=== PATIENT | male | born 1950 | race Caucasian/White ===

== ENCOUNTER 2016-10-31 10:15 | Outpatient (RCR) | payer MEDICARE, BC ==
[~2016-10-31 10:15] MED LIST: AKWA TEARS 15 M15 ML OP; ARTIFICIAL TEAR15 M7 OP; AUGMENTIN 400100 ML PEG; BACTRIM PED152.22 ML PO; CELLCEPT200 MG/ML PO; COLACE 100100 MG/CAP PO; COLACE LIQUI10 MG/ML PEG; FOSAMAX5 MG PO; IMURAN 50MG TAB50 MG PO; INSLANT SQ; KLONOPIN 0.5MG0.5 MG PO; LOVENOX 4040 MG/0.4 SQ; MESTINON 6060 MG/TAB PO; MULTI VITAMINS1 TAB PO; MULTIPLE VITAMI1 CAP PO; NEOSPORIN1 OIN TP; NEXIUM ORA40 MG/Pack PEG; NORCO 325 MG-51 TAB PO; NOVLOG SQ; NYSTATIN OR100 MU/ML PO; OYSCO 500500 M1 PO; OYSTER SHELL CA PO; PREDNISONE10 MG PO; PREDNISONE20 MG PO; PRILOTC; PRIVIGEN 200 M200 ML IV; RT ALBUTER2.5 MG/0.5 IH; SENOKOT S 50 MG1 TAB PO; TYLENOL 325MG325 MG PO; ZOFRAN 4MG T4 MG/TAB PO
[2017-06-07] MEDS ORDERED: RECLAST5 MG/100 M IV (09:48)
[2017-06-07] MEDS ORDERED: PROSOURCE PROT946 ML PO (09:50)
[2017-06-07] MEDS ORDERED: ISOSOURCE 1.51000 M1 PO (09:56)
[2017-06-07] MEDS ORDERED: TYLENOL 500MG500 MG PO (09:57)
[2017-06-07] MEDS ORDERED: NEOSPORIN1 OIN OP (09:58)
== END 2016-11-14 | disposition still patient (30) ==
LOC: WSST
DX: G70.00 Myasthenia gravis without (acute) exacerbation (principal); R53.1 Weakness

== ENCOUNTER 2017-02-02 10:00 | Outpatient (RCR) | payer MEDICARE, BC ==
[2016-11-10] VITALS (14 sets, daily range): BP systolic 116–138; BP diastolic 59–70; PULSE 60–64; TEMP 97.4–98.2
[2016-11-10 10:24] LABS: BASO % 0.6 % (0.0-2.0); EOS # 0.1 (0.0-0.7); GRAN # 4.9 (1.4-6.5); HEMATOCRIT 42.6 % (42.0-52.0); HEMOGLOBIN 14.4 g/dl (13.5-18.0); LYMPH # 1.4 (1.2-3.4); LYMPH % 19.6 % (20.0-51.0); MEAN CELL VOLUME 95 fl (80.0-100.0); MEAN CORPUSCULAR HEMOGLOBIN 32 pg (27.0-31.0); MEAN CORPUSCULAR HGB CONC 34 g/dl (33.0-37.0); MEAN PLATELET VOLUME 10.3 fl (7.4-10.4); MONO # 0.7 (0.1-0.6); MONO % 9.4 % (1.7-9.3); PLATELET COUNT 167 K/mm3 (130-400); WHITE BLOOD COUNT 7.2 K/mm3 (4.8-10.8)
[2016-11-10 10:35] LABS: ADJUSTED CALCIUM 9.3 mg/dL (8.4-10.2); ALBUMIN 3.9 gm/dL (3.5-5.0); BILIRUBIN,TOTAL 0.8 mg/dL (0.0-1.0); CALCIUM 9.2 mg/dL (8.4-10.2); CREATININE, serum 0.88 mg/dL (0.66-1.25); TOTAL PROTEIN 7.9 gm/dL (6.4-8.2)
[2016-12-01] VITALS (15 sets, daily range): BP systolic 102–127; BP diastolic 50–79; PULSE 56–63; TEMP 97.7–98.1
[2016-12-01 10:18] LABS: BASO % 0.4 % (0.0-2.0); EOS # 0.1 (0.0-0.7); EOS % 0.7 % (0-4.0); GRAN # 5.5 (1.4-6.5); GRAN % 67.3 % (42.2-75.2); HEMATOCRIT 41.9 % (42.0-52.0); HEMOGLOBIN 14.3 g/dl (13.5-18.0); LYMPH # 1.7 (1.2-3.4); LYMPH % 21.2 % (20.0-51.0); MEAN CELL VOLUME 96 fl (80.0-100.0); MEAN CORPUSCULAR HEMOGLOBIN 33 pg (27.0-31.0); MEAN CORPUSCULAR HGB CONC 34 g/dl (33.0-37.0); MEAN PLATELET VOLUME 10.2 fl (7.4-10.4); MONO # 0.8 (0.1-0.6); MONO % 10.2 % (1.7-9.3); PLATELET COUNT 145 K/mm3 (130-400); RED BLOOD COUNT 4.38 M/mm3 (4.20-5.60); WHITE BLOOD COUNT 8.2 K/mm3 (4.8-10.8)
[2016-12-01 10:30] LABS: ADJUSTED CALCIUM 9.3 mg/dL (8.4-10.2); ALBUMIN 3.8 gm/dL (3.5-5.0); BILIRUBIN,TOTAL 0.8 mg/dL (0.0-1.0); CALCIUM 9.1 mg/dL (8.4-10.2); CREATININE, serum 0.92 mg/dL (0.66-1.25); POTASSIUM 3.8 mmol/L (3.4-5.0); TOTAL PROTEIN 7.9 gm/dL (6.4-8.2)
[2016-12-22] VITALS (14 sets, daily range): BP systolic 110–129; BP diastolic 60–78; PULSE 57–64; TEMP 97.9–98.7
[2016-12-22 08:57] LABS: BASO % 0.4 % (0.0-2.0); EOS # 0.1 (0.0-0.7); EOS % 0.6 % (0-4.0); GRAN # 6.4 (1.4-6.5); GRAN % 80.2 % (42.2-75.2); HEMATOCRIT 42.3 % (42.0-52.0); HEMOGLOBIN 14.4 g/dl (13.5-18.0); LYMPH # 0.9 (1.2-3.4); LYMPH % 10.9 % (20.0-51.0); MEAN CELL VOLUME 94 fl (80.0-100.0); MEAN CORPUSCULAR HEMOGLOBIN 32 pg (27.0-31.0); MEAN CORPUSCULAR HGB CONC 34 g/dl (33.0-37.0); MEAN PLATELET VOLUME 10.1 fl (7.4-10.4); MONO # 0.6 (0.1-0.6); MONO % 7.4 % (1.7-9.3); PLATELET COUNT 147 K/mm3 (130-400); RED BLOOD COUNT 4.49 M/mm3 (4.20-5.60); WHITE BLOOD COUNT 7.9 K/mm3 (4.8-10.8)
[2016-12-22 09:15] LABS: ADJUSTED CALCIUM 9.4 mg/dL (8.4-10.2); ALBUMIN 3.8 gm/dL (3.5-5.0); BILIRUBIN,TOTAL 0.8 mg/dL (0.0-1.0); CALCIUM 9.2 mg/dL (8.4-10.2); CREATININE, serum 0.92 mg/dL (0.66-1.25); TOTAL PROTEIN 7.7 gm/dL (6.4-8.2)
[2017-01-12] VITALS (10 sets, daily range): BP systolic 106–133; BP diastolic 56–69; PULSE 51–60; TEMP 97.5–98.4
[2017-01-12 10:43] LABS: BASO % 0.4 % (0.0-2.0); EOS # 0.1 (0.0-0.7); EOS % 0.7 % (0-4.0); GRAN # 5.2 (1.4-6.5); GRAN % 67.7 % (42.2-75.2); HEMATOCRIT 43.5 % (42.0-52.0); HEMOGLOBIN 14.9 g/dl (13.5-18.0); LYMPH # 1.6 (1.2-3.4); LYMPH % 20.6 % (20.0-51.0); MEAN CELL VOLUME 95 fl (80.0-100.0); MEAN CORPUSCULAR HEMOGLOBIN 32 pg (27.0-31.0); MEAN CORPUSCULAR HGB CONC 34 g/dl (33.0-37.0); MEAN PLATELET VOLUME 10.4 fl (7.4-10.4); MONO # 0.8 (0.1-0.6); MONO % 10.2 % (1.7-9.3); PLATELET COUNT 149 K/mm3 (130-400); REDCELL DISTRIBUTION WIDTH-CV 13.1 % (11.5-14.5); WHITE BLOOD COUNT 7.6 K/mm3 (4.8-10.8)
[2017-01-12 10:51] LABS: ADJUSTED CALCIUM 9.5 mg/dL (8.4-10.2); ALBUMIN 4.1 gm/dL (3.5-5.0); BILIRUBIN,TOTAL 0.8 mg/dL (0.0-1.0); CALCIUM 9.6 mg/dL (8.4-10.2); CREATININE, serum 0.97 mg/dL (0.66-1.25); POTASSIUM 3.6 mmol/L (3.4-5.0); TOTAL PROTEIN 8.2 gm/dL (6.4-8.2)
[~2017-02-02] VITALS: Ht 180.3 cm; Wt 101.8 kg
[2017-02-02] VITALS (14 sets, daily range): BP systolic 109–136; BP diastolic 60–75; PULSE 54–62; TEMP 97.2–98.6
[2017-02-02 10:31] LABS: BASO # 0.1 (0.0-0.2); BASO % 0.7 % (0.0-2.0); EOS # 0.1 (0.0-0.7); EOS % 0.7 % (0-4.0); GRAN # 4.7 (1.4-6.5); HEMATOCRIT 42.3 % (42.0-52.0); HEMOGLOBIN 14.4 g/dl (13.5-18.0); LYMPH # 1.5 (1.2-3.4); LYMPH % 21.4 % (20.0-51.0); MEAN CELL VOLUME 96 fl (80.0-100.0); MEAN CORPUSCULAR HEMOGLOBIN 33 pg (27.0-31.0); MEAN CORPUSCULAR HGB CONC 34 g/dl (33.0-37.0); MEAN PLATELET VOLUME 10.1 fl (7.4-10.4); MONO # 0.6 (0.1-0.6); MONO % 8.9 % (1.7-9.3); PLATELET COUNT 156 K/mm3 (130-400); RED BLOOD COUNT 4.43 M/mm3 (4.20-5.60); REDCELL DISTRIBUTION WIDTH-CV 13.1 % (11.5-14.5); WHITE BLOOD COUNT 6.9 K/mm3 (4.8-10.8)
[2017-02-02 10:49] LABS: ADJUSTED CALCIUM 9.4 mg/dL (8.4-10.2); ALBUMIN 3.8 gm/dL (3.5-5.0); BILIRUBIN,TOTAL 0.8 mg/dL (0.0-1.0); CALCIUM 9.2 mg/dL (8.4-10.2); CREATININE, serum 0.87 mg/dL (0.66-1.25); POTASSIUM 4.1 mmol/L (3.4-5.0); TOTAL PROTEIN 7.8 gm/dL (6.4-8.2)
[2017-06-07] MEDS ORDERED: RECLAST5 MG/100 M IV (09:48)
[2017-06-07] MEDS ORDERED: PROSOURCE PROT946 ML PO (09:50)
[2017-06-07] MEDS ORDERED: ISOSOURCE 1.51000 M1 PO (09:56)
[2017-06-07] MEDS ORDERED: TYLENOL 500MG500 MG PO (09:57)
[2017-06-07] MEDS ORDERED: NEOSPORIN1 OIN OP (09:58)
== END 2017-02-08 | disposition home or self-care (01) ==
LOC: EUO
PROVIDERS: Family Medicine
DX: G70.00 Myasthenia gravis without (acute) exacerbation (principal)
CPT/HCPCS: J1200; J1459

== ENCOUNTER 2017-02-08 10:15 | Outpatient (RCR) | payer MEDICARE, BC ==
[2017-06-07] MEDS ORDERED: RECLAST5 MG/100 M IV (09:48)
[2017-06-07] MEDS ORDERED: PROSOURCE PROT946 ML PO (09:50)
[2017-06-07] MEDS ORDERED: ISOSOURCE 1.51000 M1 PO (09:56)
[2017-06-07] MEDS ORDERED: TYLENOL 500MG500 MG PO (09:57)
[2017-06-07] MEDS ORDERED: NEOSPORIN1 OIN OP (09:58)
== END 2017-02-13 | disposition home or self-care (01) ==
LOC: WSST
DX: G70.00 Myasthenia gravis without (acute) exacerbation (principal)
CPT/HCPCS: G8997-GN; G8998-GN; G9171-GN; G9172-GN

== ENCOUNTER 2017-02-14 14:30 | Emergency (ER) | payer MEDICARE, BC ==
[~2017-02-14] VITALS: Ht 180.3 cm; Wt 101.8 kg
[2017-02-14 14:30] VITALS: BP 182/79; TEMP 98.5
[2017-02-14 15:08] VITALS: PULSE 75
[2017-06-07] MEDS ORDERED: RECLAST5 MG/100 M IV (09:48)
[2017-06-07] MEDS ORDERED: PROSOURCE PROT946 ML PO (09:50)
[2017-06-07] MEDS ORDERED: ISOSOURCE 1.51000 M1 PO (09:56)
[2017-06-07] MEDS ORDERED: TYLENOL 500MG500 MG PO (09:57)
[2017-06-07] MEDS ORDERED: NEOSPORIN1 OIN OP (09:58)
== END 2017-02-14 15:09 | disposition home or self-care (01) ==
LOC: COL.ER 14:30
DX: K94.23 Gastrostomy malfunction (principal); Z43.1 Encounter for attention to gastrostomy; G70.00 Myasthenia gravis without (acute) exacerbation

== ENCOUNTER 2017-05-01 10:15 | Outpatient (RCR) | payer MEDICARE, BC ==
[2017-06-07] MEDS ORDERED: RECLAST5 MG/100 M IV (09:48)
[2017-06-07] MEDS ORDERED: PROSOURCE PROT946 ML PO (09:50)
[2017-06-07] MEDS ORDERED: ISOSOURCE 1.51000 M1 PO (09:56)
[2017-06-07] MEDS ORDERED: TYLENOL 500MG500 MG PO (09:57)
[2017-06-07] MEDS ORDERED: NEOSPORIN1 OIN OP (09:58)
== END 2017-05-23 | disposition home or self-care (01) ==
LOC: WSST
DX: G70.00 Myasthenia gravis without (acute) exacerbation (principal)

== ENCOUNTER 2017-05-17 10:00 | Outpatient (RCR) | payer MEDICARE, BC ==
[2017-02-23] VITALS (14 sets, daily range): BP systolic 103–138; BP diastolic 60–76; PULSE 56–62; TEMP 96.9–98
[2017-02-23 11:14] LABS: ADJUSTED CALCIUM 9.1 mg/dL (8.4-10.2); BILIRUBIN,TOTAL 0.9 mg/dL (0.0-1.0); CALCIUM 9.1 mg/dL (8.4-10.2); CREATININE, serum 0.95 mg/dL (0.66-1.25); POTASSIUM 3.7 mmol/L (3.4-5.0); TOTAL PROTEIN 7.6 gm/dL (6.4-8.2)
[2017-02-23 11:27] LABS: BASO % 0.3 % (0.0-2.0); EOS # 0.1 (0.0-0.7); EOS % 0.9 % (0-4.0); GRAN # 4.3 (1.4-6.5); GRAN % 64.1 % (42.2-75.2); HEMATOCRIT 42.2 % (42.0-52.0); HEMOGLOBIN 14.2 g/dl (13.5-18.0); LYMPH # 1.6 (1.2-3.4); MEAN CELL VOLUME 95 fl (80.0-100.0); MEAN CORPUSCULAR HEMOGLOBIN 32 pg (27.0-31.0); MEAN CORPUSCULAR HGB CONC 34 g/dl (33.0-37.0); MEAN PLATELET VOLUME 10.7 fl (7.4-10.4); MONO # 0.7 (0.1-0.6); MONO % 10.4 % (1.7-9.3); PLATELET COUNT 151 K/mm3 (130-400); RED BLOOD COUNT 4.44 M/mm3 (4.20-5.60); REDCELL DISTRIBUTION WIDTH-CV 13.3 % (11.5-14.5); WHITE BLOOD COUNT 6.7 K/mm3 (4.8-10.8)
[2017-03-16] VITALS (14 sets, daily range): BP systolic 106–138; BP diastolic 54–72; PULSE 51–60; TEMP 97.3–99
[2017-03-16 10:58] LABS: BASO % 0.4 % (0.0-2.0); EOS % 0.4 % (0-4.0); GRAN # 6.4 (1.4-6.5); GRAN % 85.4 % (42.2-75.2); HEMATOCRIT 44.1 % (42.0-52.0); HEMOGLOBIN 15.3 g/dl (13.5-18.0); LYMPH # 0.7 (1.2-3.4); LYMPH % 8.6 % (20.0-51.0); MEAN CELL VOLUME 95 fl (80.0-100.0); MEAN CORPUSCULAR HEMOGLOBIN 33 pg (27.0-31.0); MEAN CORPUSCULAR HGB CONC 35 g/dl (33.0-37.0); MEAN PLATELET VOLUME 10.1 fl (7.4-10.4); MONO # 0.4 (0.1-0.6); MONO % 4.9 % (1.7-9.3); PLATELET COUNT 157 K/mm3 (130-400); RED BLOOD COUNT 4.63 M/mm3 (4.20-5.60); REDCELL DISTRIBUTION WIDTH-CV 13.2 % (11.5-14.5); WHITE BLOOD COUNT 7.5 K/mm3 (4.8-10.8)
[2017-03-16 11:12] LABS: ADJUSTED CALCIUM 9.4 mg/dL (8.4-10.2); ALBUMIN 4.2 gm/dL (3.5-5.0); CALCIUM 9.6 mg/dL (8.4-10.2); CREATININE, serum 0.93 mg/dL (0.66-1.25); POTASSIUM 4.5 mmol/L (3.4-5.0); TOTAL PROTEIN 8.1 gm/dL (6.4-8.2)
[2017-04-05] VITALS (15 sets, daily range): BP systolic 102–127; BP diastolic 50–73; PULSE 51–60; TEMP 96.9–98.1
[2017-04-05 10:58] LABS: BASO % 0.4 % (0.0-2.0); EOS % 0.6 % (0-4.0); GRAN % 73.9 % (42.2-75.2); HEMATOCRIT 41.7 % (42.0-52.0); HEMOGLOBIN 14.3 g/dl (13.5-18.0); LYMPH # 1.2 (1.2-3.4); MEAN CELL VOLUME 96 fl (80.0-100.0); MEAN CORPUSCULAR HEMOGLOBIN 33 pg (27.0-31.0); MEAN CORPUSCULAR HGB CONC 34 g/dl (33.0-37.0); MEAN PLATELET VOLUME 10.3 fl (7.4-10.4); MONO # 0.5 (0.1-0.6); MONO % 7.8 % (1.7-9.3); PLATELET COUNT 152 K/mm3 (130-400); RED BLOOD COUNT 4.36 M/mm3 (4.20-5.60); REDCELL DISTRIBUTION WIDTH-CV 13.2 % (11.5-14.5); WHITE BLOOD COUNT 6.8 K/mm3 (4.8-10.8)
[2017-04-05 11:16] LABS: ALBUMIN 3.9 gm/dL (3.5-5.0); BILIRUBIN,TOTAL 0.8 mg/dL (0.0-1.0); CALCIUM 8.9 mg/dL (8.4-10.2); CREATININE, serum 0.82 mg/dL (0.66-1.25); TOTAL PROTEIN 7.7 gm/dL (6.4-8.2)
[2017-04-19 13:10] VITALS: BP 118/48; PULSE 60; TEMP 98.4
[2017-04-27] VITALS (13 sets, daily range): BP systolic 111–127; BP diastolic 49–71; PULSE 52–70; TEMP 97–98.2
[2017-04-27 10:54] LABS: BASO % 0.3 % (0.0-2.0); EOS % 0.4 % (0-4.0); GRAN # 5.8 (1.4-6.5); GRAN % 85.5 % (42.2-75.2); HEMOGLOBIN 14.5 g/dl (13.5-18.0); LYMPH # 0.6 (1.2-3.4); LYMPH % 8.4 % (20.0-51.0); MEAN CELL VOLUME 96 fl (80.0-100.0); MEAN CORPUSCULAR HEMOGLOBIN 33 pg (27.0-31.0); MEAN CORPUSCULAR HGB CONC 35 g/dl (33.0-37.0); MEAN PLATELET VOLUME 10.5 fl (7.4-10.4); MONO # 0.3 (0.1-0.6); PLATELET COUNT 137 K/mm3 (130-400); RED BLOOD COUNT 4.39 M/mm3 (4.20-5.60); REDCELL DISTRIBUTION WIDTH-CV 13.4 % (11.5-14.5); WHITE BLOOD COUNT 6.8 K/mm3 (4.8-10.8)
[2017-04-27 11:04] LABS: ADJUSTED CALCIUM 8.5 mg/dL (8.4-10.2); ALBUMIN 4.1 gm/dL (3.5-5.0); CALCIUM 8.6 mg/dL (8.4-10.2); CREATININE, serum 0.78 mg/dL (0.66-1.25); POTASSIUM 5.1 mmol/L (3.4-5.0); TOTAL PROTEIN 7.8 gm/dL (6.4-8.2)
[2017-05-17] VITALS (15 sets, daily range): BP systolic 114–129; BP diastolic 51–75; PULSE 52–87; TEMP 97.3–98.4
[~2017-05-17] VITALS: Ht 180.3 cm; Wt 101.8 kg
[2017-05-17 12:00] LABS: HEMATOCRIT 45.1 % (42.0-52.0); HEMOGLOBIN 15.5 g/dl (13.5-18.0); MEAN CELL VOLUME 96 fl (80.0-100.0); MEAN CORPUSCULAR HEMOGLOBIN 33 pg (27.0-31.0); MEAN CORPUSCULAR HGB CONC 34 g/dl (33.0-37.0); MEAN PLATELET VOLUME 10.5 fl (7.4-10.4); PLATELET COUNT 129 K/mm3 (130-400); REDCELL DISTRIBUTION WIDTH-CV 13.4 % (11.5-14.5); WHITE BLOOD COUNT 6.2 K/mm3 (4.8-10.8)
[2017-05-17 12:06] LABS: CALCIUM 9.1 mg/dL (8.4-10.2); CREATININE, serum 0.79 mg/dL (0.66-1.25); POTASSIUM 4.5 mmol/L (3.4-5.0)
[2017-06-07] MEDS ORDERED: RECLAST5 MG/100 M IV (09:48)
[2017-06-07] MEDS ORDERED: PROSOURCE PROT946 ML PO (09:50)
[2017-06-07] MEDS ORDERED: ISOSOURCE 1.51000 M1 PO (09:56)
[2017-06-07] MEDS ORDERED: TYLENOL 500MG500 MG PO (09:57)
[2017-06-07] MEDS ORDERED: NEOSPORIN1 OIN OP (09:58)
== END 2017-05-24 | disposition still patient (30) ==
LOC: EUO
PROVIDERS: Family Medicine
DX: G70.00 Myasthenia gravis without (acute) exacerbation (principal); M81.0 Age-related osteoporosis without current pathological fracture; Z79.899 Other long term (current) drug therapy
CPT/HCPCS: J1200; J1459; J3489

== ENCOUNTER 2017-06-26 09:30 | Outpatient (RCR) | payer MEDICARE, BC ==
[~2017-06-26 09:30] MED LIST changes: +ISOSOURCE 1.51000 M1 PO; +NEOSPORIN1 OIN OP; +PROSOURCE PROT946 ML PO; +RECLAST5 MG/100 M IV; +TYLENOL 500MG500 MG PO
== END 2017-08-27 | disposition home or self-care (01) ==
LOC: WSST
DX: G70.00 Myasthenia gravis without (acute) exacerbation (principal); R13.12 Dysphagia, oropharyngeal phase; R49.9 Unspecified voice and resonance disorder; F80.9 Developmental disorder of speech and language, unspecified; Z97.8 Presence of other specified devices
CPT/HCPCS: G9172-GN; G9173-GN

== ENCOUNTER 2017-08-30 10:00 | Outpatient (RCR) | payer MEDICARE, BC ==
[2017-06-07] VITALS (11 sets, daily range): BP systolic 103–130; BP diastolic 49–95; PULSE 44–60; TEMP 97–98.5
[2017-06-07 09:43] LABS: HEMATOCRIT 41.3 % (42.0-52.0); HEMOGLOBIN 14.5 g/dl (13.5-18.0); MEAN CELL VOLUME 96 fl (80.0-100.0); MEAN CORPUSCULAR HEMOGLOBIN 34 pg (27.0-31.0); MEAN CORPUSCULAR HGB CONC 35 g/dl (33.0-37.0); MEAN PLATELET VOLUME 10.3 fl (7.4-10.4); PLATELET COUNT 115 K/mm3 (130-400); RED BLOOD COUNT 4.32 M/mm3 (4.20-5.60); WHITE BLOOD COUNT 5.4 K/mm3 (4.8-10.8)
[2017-06-07 09:56] LABS: CREATININE, serum 0.81 mg/dL (0.66-1.25); POTASSIUM 3.8 mmol/L (3.4-5.0)
[2017-06-28] VITALS (14 sets, daily range): BP systolic 109–129; BP diastolic 17–70; PULSE 54–62; TEMP 56–98.8
[2017-06-28 10:25] LABS: HEMATOCRIT 41.7 % (42.0-52.0); HEMOGLOBIN 14.3 g/dl (13.5-18.0); MEAN CELL VOLUME 97 fl (80.0-100.0); MEAN CORPUSCULAR HEMOGLOBIN 33 pg (27.0-31.0); MEAN CORPUSCULAR HGB CONC 34 g/dl (33.0-37.0); MEAN PLATELET VOLUME 10.3 fl (7.4-10.4); PLATELET COUNT 126 K/mm3 (130-400); WHITE BLOOD COUNT 4.7 K/mm3 (4.8-10.8)
[2017-06-28 10:38] LABS: CALCIUM 8.6 mg/dL (8.4-10.2); CREATININE, serum 0.8 mg/dL (0.66-1.25); POTASSIUM 4.2 mmol/L (3.4-5.0)
[2017-07-19] VITALS (11 sets, daily range): BP systolic 114–137; BP diastolic 63–81; PULSE 45–56; TEMP 97.6–98.5
[2017-07-19 11:24] LABS: BASO % 0.4 % (0.0-2.0); EOS # 0.1 (0.0-0.7); EOS % 1.8 % (0-4.0); GRAN # 2.3 (1.4-6.5); GRAN % 52.5 % (42.2-75.2); HEMATOCRIT 40.7 % (42.0-52.0); HEMOGLOBIN 13.8 g/dl (13.5-18.0); LYMPH # 1.5 (1.2-3.4); LYMPH % 34.2 % (20.0-51.0); MEAN CELL VOLUME 97 fl (80.0-100.0); MEAN CORPUSCULAR HEMOGLOBIN 33 pg (27.0-31.0); MEAN CORPUSCULAR HGB CONC 34 g/dl (33.0-37.0); MEAN PLATELET VOLUME 10.1 fl (7.4-10.4); MONO # 0.5 (0.1-0.6); MONO % 10.7 % (1.7-9.3); PLATELET COUNT 116 K/mm3 (130-400); RED BLOOD COUNT 4.19 M/mm3 (4.20-5.60); WHITE BLOOD COUNT 4.5 K/mm3 (4.8-10.8)
[2017-07-19 11:33] LABS: ADJUSTED CALCIUM 9.2 mg/dL (8.4-10.2); ALBUMIN 3.9 gm/dL (3.5-5.0); BILIRUBIN,TOTAL 0.9 mg/dL (0.0-1.0); CALCIUM 9.1 mg/dL (8.4-10.2); CREATININE, serum 0.8 mg/dL (0.66-1.25); POTASSIUM 4.1 mmol/L (3.4-5.0); TOTAL PROTEIN 7.8 gm/dL (6.4-8.2)
[2017-08-09] VITALS (14 sets, daily range): BP systolic 110–141; BP diastolic 59–75; PULSE 46–81; TEMP 98–98.6
[2017-08-09 10:29] LABS: HEMATOCRIT 40.1 % (42.0-52.0); MEAN CELL VOLUME 96 fl (80.0-100.0); MEAN CORPUSCULAR HEMOGLOBIN 34 pg (27.0-31.0); MEAN CORPUSCULAR HGB CONC 35 g/dl (33.0-37.0); MEAN PLATELET VOLUME 10.1 fl (7.4-10.4); PLATELET COUNT 115 K/mm3 (130-400); RED BLOOD COUNT 4.17 M/mm3 (4.20-5.60); WHITE BLOOD COUNT 4.7 K/mm3 (4.8-10.8)
[2017-08-09 10:40] LABS: CREATININE, serum 0.82 mg/dL (0.66-1.25); POTASSIUM 3.7 mmol/L (3.4-5.0)
[~2017-08-30] VITALS: Ht 180.3 cm; Wt 98.5 kg
[2017-08-30] VITALS (14 sets, daily range): BP systolic 115–145; BP diastolic 53–77; PULSE 50–92; TEMP 97.8–98.7
[2017-08-30 10:34] LABS: BASO % 0.4 % (0.0-2.0); EOS % 0.9 % (0-4.0); GRAN # 2.6 (1.4-6.5); GRAN % 58.8 % (42.2-75.2); HEMATOCRIT 39.9 % (42.0-52.0); HEMOGLOBIN 13.7 g/dl (13.5-18.0); LYMPH # 1.3 (1.2-3.4); LYMPH % 29.9 % (20.0-51.0); MEAN CELL VOLUME 98 fl (80.0-100.0); MEAN CORPUSCULAR HEMOGLOBIN 34 pg (27.0-31.0); MEAN CORPUSCULAR HGB CONC 34 g/dl (33.0-37.0); MEAN PLATELET VOLUME 10.1 fl (7.4-10.4); MONO # 0.4 (0.1-0.6); MONO % 9.8 % (1.7-9.3); PLATELET COUNT 126 K/mm3 (130-400); RED BLOOD COUNT 4.09 M/mm3 (4.20-5.60); WHITE BLOOD COUNT 4.5 K/mm3 (4.8-10.8)
[2017-08-30 10:48] LABS: ALBUMIN 4.1 gm/dL (3.5-5.0); BILIRUBIN,TOTAL 0.9 mg/dL (0.0-1.0); CALCIUM 9.1 mg/dL (8.4-10.2); CREATININE, serum 0.83 mg/dL (0.66-1.25); POTASSIUM 3.5 mmol/L (3.4-5.0); TOTAL PROTEIN 7.9 gm/dL (6.4-8.2)
== END 2017-09-05 ==
LOC: EUO
PROVIDERS: Family Medicine
DX: G70.00 Myasthenia gravis without (acute) exacerbation (principal)
CPT/HCPCS: J1200; J1459

== ENCOUNTER 2017-11-01 10:00 | Outpatient (RCR) | payer MEDICARE, BC ==
[2017-09-20] VITALS (15 sets, daily range): BP systolic 103–136; BP diastolic 40–80; PULSE 54–78; TEMP 98–99
[2017-09-20 10:33] LABS: HEMATOCRIT 41.5 % (42.0-52.0); HEMOGLOBIN 14.2 g/dl (13.5-18.0); MEAN CELL VOLUME 97 fl (80.0-100.0); MEAN CORPUSCULAR HEMOGLOBIN 33 pg (27.0-31.0); MEAN CORPUSCULAR HGB CONC 34 g/dl (33.0-37.0); MEAN PLATELET VOLUME 9.7 fl (7.4-10.4); PLATELET COUNT 153 K/mm3 (130-400); RED BLOOD COUNT 4.28 M/mm3 (4.20-5.60); REDCELL DISTRIBUTION WIDTH-CV 12.8 % (11.5-14.5)
[2017-09-20 10:46] LABS: CREATININE, serum 0.83 mg/dL (0.66-1.25); POTASSIUM 3.9 mmol/L (3.4-5.0)
[2017-10-11] VITALS (15 sets, daily range): BP systolic 110–134; BP diastolic 65–78; PULSE 47–58; TEMP 98–98.3
[2017-10-11 10:55] LABS: HEMATOCRIT 40.8 % (42.0-52.0); HEMOGLOBIN 14.3 g/dl (13.5-18.0); MEAN CELL VOLUME 98 fl (80.0-100.0); MEAN CORPUSCULAR HEMOGLOBIN 34 pg (27.0-31.0); MEAN CORPUSCULAR HGB CONC 35 g/dl (33.0-37.0); MEAN PLATELET VOLUME 9.9 fl (7.4-10.4); PLATELET COUNT 130 K/mm3 (130-400); RED BLOOD COUNT 4.18 M/mm3 (4.20-5.60); REDCELL DISTRIBUTION WIDTH-CV 13.2 % (11.5-14.5)
[2017-10-11 11:03] LABS: CALCIUM 9.3 mg/dL (8.4-10.2); CREATININE, serum 0.86 mg/dL (0.66-1.25); POTASSIUM 3.6 mmol/L (3.4-5.0)
[2017-11-01] VITALS (14 sets, daily range): BP systolic 109–135; BP diastolic 42–69; PULSE 49–63; TEMP 97.6–98.7
[~2017-11-01] VITALS: Ht 180.3 cm; Wt 97.0 kg
[~2017-11-01 10:00] MED LIST changes: -PRILOTC; +PRILOTC PO
[2017-11-01 10:28] LABS: HEMATOCRIT 39.1 % (42.0-52.0); HEMOGLOBIN 13.6 g/dl (13.5-18.0); MEAN CELL VOLUME 98 fl (80.0-100.0); MEAN CORPUSCULAR HEMOGLOBIN 34 pg (27.0-31.0); MEAN CORPUSCULAR HGB CONC 35 g/dl (33.0-37.0); MEAN PLATELET VOLUME 9.5 fl (7.4-10.4); PLATELET COUNT 132 K/mm3 (130-400); REDCELL DISTRIBUTION WIDTH-CV 13.2 % (11.5-14.5)
[2017-11-01 10:41] LABS: CALCIUM 9.2 mg/dL (8.4-10.2); CREATININE, serum 0.86 mg/dL (0.66-1.25); POTASSIUM 3.7 mmol/L (3.4-5.0)
[2017-11-01] MEDS ORDERED: CALCIUM-500 5001 CTB PO (10:52)
== END 2017-11-02 08:30 | disposition home or self-care (01) ==
LOC: EUO 10:00
PROVIDERS: Family Medicine
DX: G70.00 Myasthenia gravis without (acute) exacerbation (principal)
CPT/HCPCS: J1200; J1569

== ENCOUNTER 2018-02-14 10:00 | Outpatient (RCR) | payer MEDICARE, BC ==
[2017-11-22] VITALS (14 sets, daily range): BP systolic 115–134; BP diastolic 63–84; PULSE 49–56; TEMP 98–98.4
[2017-11-22 10:44] LABS: HEMATOCRIT 38.9 % (42.0-52.0); HEMOGLOBIN 13.3 g/dl (13.5-18.0); MEAN CELL VOLUME 99 fl (80.0-100.0); MEAN CORPUSCULAR HEMOGLOBIN 34 pg (27.0-31.0); MEAN CORPUSCULAR HGB CONC 34 g/dl (33.0-37.0); MEAN PLATELET VOLUME 9.9 fl (7.4-10.4); PLATELET COUNT 119 K/mm3 (130-400); RED BLOOD COUNT 3.92 M/mm3 (4.20-5.60); REDCELL DISTRIBUTION WIDTH-CV 13.1 % (11.5-14.5)
[2017-11-22 10:52] LABS: CALCIUM 9.1 mg/dL (8.4-10.2); CREATININE, serum 0.83 mg/dL (0.66-1.25); POTASSIUM 3.6 mmol/L (3.4-5.0)
[2017-12-13] VITALS (14 sets, daily range): BP systolic 114–141; BP diastolic 58–68; PULSE 48–62; TEMP 98.1–98.3
[2017-12-13 10:45] LABS: HEMATOCRIT 41.5 % (42.0-52.0); HEMOGLOBIN 14.4 g/dl (13.5-18.0); MEAN CELL VOLUME 97 fl (80.0-100.0); MEAN CORPUSCULAR HEMOGLOBIN 34 pg (27.0-31.0); MEAN CORPUSCULAR HGB CONC 35 g/dl (33.0-37.0); MEAN PLATELET VOLUME 10.1 fl (7.4-10.4); PLATELET COUNT 120 K/mm3 (130-400); RED BLOOD COUNT 4.27 M/mm3 (4.20-5.60); REDCELL DISTRIBUTION WIDTH-CV 12.7 % (11.5-14.5)
[2017-12-13 10:46] LABS: CALCIUM 9.2 mg/dL (8.4-10.2); CREATININE, serum 0.84 mg/dL (0.66-1.25); POTASSIUM 3.8 mmol/L (3.4-5.0)
[2018-01-03] VITALS (12 sets, daily range): BP systolic 122–144; BP diastolic 64–82; PULSE 51–58; TEMP 97.9–98.4
[2018-01-03 10:36] LABS: HEMATOCRIT 39.8 % (42.0-52.0); HEMOGLOBIN 13.8 g/dl (13.5-18.0); MEAN CELL VOLUME 98 fl (80.0-100.0); MEAN CORPUSCULAR HEMOGLOBIN 34 pg (27.0-31.0); MEAN CORPUSCULAR HGB CONC 35 g/dl (33.0-37.0); MEAN PLATELET VOLUME 9.7 fl (7.4-10.4); PLATELET COUNT 126 K/mm3 (130-400); RED BLOOD COUNT 4.08 M/mm3 (4.20-5.60)
[2018-01-03 10:44] LABS: CALCIUM 8.7 mg/dL (8.4-10.2); CREATININE, serum 0.81 mg/dL (0.66-1.25); POTASSIUM 4.2 mmol/L (3.4-5.0)
[2018-01-24] VITALS (15 sets, daily range): BP systolic 114–141; BP diastolic 55–71; PULSE 49–60; TEMP 97.8–98.9
[2018-01-24 10:06] LABS: HEMATOCRIT 40.6 % (42.0-52.0); MEAN CELL VOLUME 98 fl (80.0-100.0); MEAN CORPUSCULAR HEMOGLOBIN 34 pg (27.0-31.0); MEAN CORPUSCULAR HGB CONC 35 g/dl (33.0-37.0); MEAN PLATELET VOLUME 9.7 fl (7.4-10.4); PLATELET COUNT 127 K/mm3 (130-400); RED BLOOD COUNT 4.16 M/mm3 (4.20-5.60); REDCELL DISTRIBUTION WIDTH-CV 13.2 % (11.5-14.5)
[2018-01-24 10:17] LABS: CALCIUM 8.8 mg/dL (8.4-10.2); CREATININE, serum 0.88 mg/dL (0.66-1.25); POTASSIUM 3.9 mmol/L (3.4-5.0)
[~2018-02-14] VITALS: Ht 180.3 cm; Wt 97.0 kg
[2018-02-14] VITALS (14 sets, daily range): BP systolic 113–140; BP diastolic 61–75; PULSE 49–57; TEMP 97.9–98.5
[~2018-02-14 10:00] MED LIST changes: +CALCIUM-500 5001 CTB PO
[2018-02-14 10:32] LABS: HEMATOCRIT 38.7 % (42.0-52.0); HEMOGLOBIN 13.4 g/dl (13.5-18.0); MEAN CELL VOLUME 97 fl (80.0-100.0); MEAN CORPUSCULAR HEMOGLOBIN 33 pg (27.0-31.0); MEAN CORPUSCULAR HGB CONC 35 g/dl (33.0-37.0); MEAN PLATELET VOLUME 9.4 fl (7.4-10.4); PLATELET COUNT 125 K/mm3 (130-400); RED BLOOD COUNT 4.01 M/mm3 (4.20-5.60); REDCELL DISTRIBUTION WIDTH-CV 13.2 % (11.5-14.5)
[2018-02-14 10:39] LABS: ALBUMIN 3.8 gm/dL (3.5-5.0); BILIRUBIN,TOTAL 0.7 mg/dL (0.0-1.0); CALCIUM 8.7 mg/dL (8.4-10.2); CREATININE, serum 0.9 mg/dL (0.66-1.25); POTASSIUM 3.9 mmol/L (3.4-5.0); TOTAL PROTEIN 8.1 gm/dL (6.4-8.2)
== END 2018-02-14 16:10 | disposition home or self-care (01) ==
LOC: EUO 10:00
PROVIDERS: Family Medicine
DX: G70.00 Myasthenia gravis without (acute) exacerbation (principal); Z79.899 Other long term (current) drug therapy
CPT/HCPCS: J1200; J1459; J1569

== ENCOUNTER 2018-05-30 10:00 | Outpatient (RCR) | payer MEDICARE, BC ==
[2018-03-07] VITALS (12 sets, daily range): BP systolic 119–131; BP diastolic 63–76; PULSE 51–62; TEMP 97.3–98.5
[2018-03-07 09:57] LABS: HEMATOCRIT 40.7 % (42.0-52.0); HEMOGLOBIN 14.1 g/dl (13.5-18.0); MEAN CELL VOLUME 97 fl (80.0-100.0); MEAN CORPUSCULAR HEMOGLOBIN 34 pg (27.0-31.0); MEAN CORPUSCULAR HGB CONC 35 g/dl (33.0-37.0); MEAN PLATELET VOLUME 9.6 fl (7.4-10.4); PLATELET COUNT 133 K/mm3 (130-400); RED BLOOD COUNT 4.19 M/mm3 (4.20-5.60); REDCELL DISTRIBUTION WIDTH-CV 13.2 % (11.5-14.5)
[2018-03-07 10:04] LABS: CALCIUM 8.6 mg/dL (8.4-10.2); CREATININE, serum 0.84 mg/dL (0.66-1.25); POTASSIUM 3.8 mmol/L (3.4-5.0)
[2018-03-28] VITALS (13 sets, daily range): BP systolic 101–131; BP diastolic 49–64; PULSE 45–54; TEMP 98.1–98.4
[2018-03-28 10:28] LABS: HEMATOCRIT 40.6 % (42.0-52.0); MEAN CELL VOLUME 96 fl (80.0-100.0); MEAN CORPUSCULAR HEMOGLOBIN 33 pg (27.0-31.0); MEAN CORPUSCULAR HGB CONC 35 g/dl (33.0-37.0); MEAN PLATELET VOLUME 9.8 fl (7.4-10.4); PLATELET COUNT 145 K/mm3 (130-400); RED BLOOD COUNT 4.22 M/mm3 (4.20-5.60)
[2018-03-28 10:42] LABS: ALANINE AMINOTRANSFERASE 29 U/L (21-72); ALBUMIN 3.9 gm/dL (3.5-5.0); ALKALINE PHOSPHATASE 54 U/L (50-136); ANION GAP 12 mmol/L (7-16); AST,SGOT 37 U/L (15-37); BILIRUBIN,TOTAL 0.9 mg/dL (0.0-1.0); BLOOD UREA NITROGEN 18 mg/dL (9-20); CALCIUM 9.2 mg/dL (8.4-10.2); CARBON DIOXIDE 28 mmol/L (22-30); CHLORIDE 106 mmol/L (98-107); CREATININE, serum 0.81 mg/dL (0.66-1.25); GLUCOSE 96 mg/dL (74-106); SODIUM 146 mmol/L (137-145); TOTAL PROTEIN 8.5 gm/dL (6.4-8.2)
[2018-04-18] VITALS (14 sets, daily range): BP systolic 113–141; BP diastolic 59–78; PULSE 52–60; TEMP 97.6–98.3
[2018-04-18 10:29] LABS: HEMATOCRIT 40.2 % (42.0-52.0); HEMOGLOBIN 13.8 g/dl (13.5-18.0); MEAN CELL VOLUME 96 fl (80.0-100.0); MEAN CORPUSCULAR HEMOGLOBIN 33 pg (27.0-31.0); MEAN CORPUSCULAR HGB CONC 34 g/dl (33.0-37.0); MEAN PLATELET VOLUME 9.8 fl (7.4-10.4); PLATELET COUNT 145 K/mm3 (130-400); RED BLOOD COUNT 4.19 M/mm3 (4.20-5.60); REDCELL DISTRIBUTION WIDTH-CV 13.2 % (11.5-14.5)
[2018-04-18 10:42] LABS: ALBUMIN 3.8 gm/dL (3.5-5.0); BILIRUBIN,TOTAL 0.9 mg/dL (0.0-1.0); CREATININE, serum 0.85 mg/dL (0.66-1.25); POTASSIUM 3.8 mmol/L (3.4-5.0); TOTAL PROTEIN 8.2 gm/dL (6.4-8.2)
[2018-04-25 13:03] VITALS: BP 143/62; PULSE 63; TEMP 98.1
[2018-05-09] VITALS (15 sets, daily range): BP systolic 108–141; BP diastolic 52–67; PULSE 47–57; TEMP 9.2
[2018-05-09 10:32] LABS: HEMATOCRIT 38.7 % (42.0-52.0); HEMOGLOBIN 13.2 g/dl (13.5-18.0); MEAN CELL VOLUME 98 fl (80.0-100.0); MEAN CORPUSCULAR HEMOGLOBIN 34 pg (27.0-31.0); MEAN CORPUSCULAR HGB CONC 34 g/dl (33.0-37.0); MEAN PLATELET VOLUME 9.5 fl (7.4-10.4); PLATELET COUNT 139 K/mm3 (130-400); RED BLOOD COUNT 3.94 M/mm3 (4.20-5.60); REDCELL DISTRIBUTION WIDTH-CV 13.6 % (11.5-14.5)
[2018-05-09 10:43] LABS: ALBUMIN 3.7 gm/dL (3.5-5.0); BILIRUBIN,TOTAL 0.9 mg/dL (0.0-1.0); CALCIUM 8.8 mg/dL (8.4-10.2); CREATININE, serum 0.84 mg/dL (0.66-1.25); TOTAL PROTEIN 8.2 gm/dL (6.4-8.2)
[~2018-05-30] VITALS: Ht 180.3 cm; Wt 96.8 kg
[2018-05-30] VITALS (15 sets, daily range): BP systolic 103–136; BP diastolic 54–70; PULSE 51–64; TEMP 97.7–98.5
[2018-05-30 10:17] LABS: HEMATOCRIT 41.4 % (42.0-52.0); HEMOGLOBIN 14.5 g/dl (13.5-18.0); MEAN CELL VOLUME 98 fl (80.0-100.0); MEAN CORPUSCULAR HEMOGLOBIN 34 pg (27.0-31.0); MEAN CORPUSCULAR HGB CONC 35 g/dl (33.0-37.0); MEAN PLATELET VOLUME 9.7 fl (7.4-10.4); PLATELET COUNT 135 K/mm3 (130-400); RED BLOOD COUNT 4.21 M/mm3 (4.20-5.60); REDCELL DISTRIBUTION WIDTH-CV 13.4 % (11.5-14.5)
[2018-05-30 10:30] LABS: ALBUMIN 4.1 gm/dL (3.5-5.0); BILIRUBIN,TOTAL 0.8 mg/dL (0.0-1.0); CALCIUM 8.8 mg/dL (8.4-10.2); CREATININE, serum 0.84 mg/dL (0.66-1.25); POTASSIUM 3.9 mmol/L (3.4-5.0)
[2018-08-01] MEDS ORDERED: CEPHALEXIN500 M1 PO (08:33)
== END 2018-06-05 | disposition still patient (30) ==
LOC: EUO
PROVIDERS: Family Medicine; Internal Medicine Pulmonary Disease
DX: M81.0 Age-related osteoporosis without current pathological fracture (principal); G70.00 Myasthenia gravis without (acute) exacerbation; Z79.899 Other long term (current) drug therapy
CPT/HCPCS: J1200; J1569; J3489

== ENCOUNTER → 2018-07-26 | Outpatient (CLI) | payer MEDICARE, BC | LOC: ZCOL.LAB 17:19 | DX: Z01.89 Encounter for other specified special examinations (principal) ==

== ENCOUNTER 2018-09-12 09:30 | Outpatient (RCR) | payer MEDICARE, BC ==
[2018-06-20] VITALS (12 sets, daily range): BP systolic 112–137; BP diastolic 54–79; PULSE 49–85; TEMP 97.4–98.4
[2018-06-20 10:20] LABS: HEMATOCRIT 39.4 % (42.0-52.0); HEMOGLOBIN 13.7 g/dl (13.5-18.0); MEAN CELL VOLUME 97 fl (80.0-100.0); MEAN CORPUSCULAR HEMOGLOBIN 34 pg (27.0-31.0); MEAN CORPUSCULAR HGB CONC 35 g/dl (33.0-37.0); MEAN PLATELET VOLUME 9.4 fl (7.4-10.4); PLATELET COUNT 135 K/mm3 (130-400); RED BLOOD COUNT 4.07 M/mm3 (4.20-5.60)
[2018-06-20 10:33] LABS: ALBUMIN 3.9 gm/dL (3.5-5.0); BILIRUBIN,TOTAL 0.8 mg/dL (0.0-1.0); CALCIUM 8.6 mg/dL (8.4-10.2); CREATININE, serum 0.79 mg/dL (0.66-1.25); POTASSIUM 3.7 mmol/L (3.4-5.0); TOTAL PROTEIN 7.7 gm/dL (6.4-8.2)
[2018-07-11] VITALS (15 sets, daily range): BP systolic 108–136; BP diastolic 55–94; PULSE 45–59; TEMP 97.3–98.7
[2018-07-11 10:34] LABS: HEMATOCRIT 40.1 % (42.0-52.0); HEMOGLOBIN 13.7 g/dl (13.5-18.0); MEAN CELL VOLUME 97 fl (80.0-100.0); MEAN CORPUSCULAR HEMOGLOBIN 33 pg (27.0-31.0); MEAN CORPUSCULAR HGB CONC 34 g/dl (33.0-37.0); MEAN PLATELET VOLUME 9.6 fl (7.4-10.4); PLATELET COUNT 118 K/mm3 (130-400); RED BLOOD COUNT 4.12 M/mm3 (4.20-5.60); REDCELL DISTRIBUTION WIDTH-CV 12.8 % (11.5-14.5)
[2018-07-11 10:44] LABS: ALBUMIN 3.8 gm/dL (3.5-5.0); BILIRUBIN,TOTAL 0.5 mg/dL (0.0-1.0); CALCIUM 8.4 mg/dL (8.4-10.2); CREATININE, serum 0.81 mg/dL (0.66-1.25); POTASSIUM 3.9 mmol/L (3.4-5.0); TOTAL PROTEIN 7.6 gm/dL (6.4-8.2)
[2018-08-01] VITALS (13 sets, daily range): BP systolic 111–127; BP diastolic 51–85; PULSE 49–80; TEMP 97.7–98.6
[2018-08-01 08:20] LABS: HEMATOCRIT 41.2 % (42.0-52.0); HEMOGLOBIN 13.8 g/dl (13.5-18.0); MEAN CELL VOLUME 99 fl (80.0-100.0); MEAN CORPUSCULAR HEMOGLOBIN 33 pg (27.0-31.0); MEAN CORPUSCULAR HGB CONC 34 g/dl (33.0-37.0); MEAN PLATELET VOLUME 9.7 fl (7.4-10.4); PLATELET COUNT 157 K/mm3 (130-400); RED BLOOD COUNT 4.18 M/mm3 (4.20-5.60); REDCELL DISTRIBUTION WIDTH-CV 12.8 % (11.5-14.5)
[2018-08-01 08:31] LABS: BILIRUBIN,TOTAL 0.8 mg/dL (0.0-1.0); CALCIUM 8.8 mg/dL (8.4-10.2); CREATININE, serum 0.86 mg/dL (0.66-1.25); POTASSIUM 3.5 mmol/L (3.4-5.0); TOTAL PROTEIN 7.9 gm/dL (6.4-8.2)
[2018-08-22] VITALS (13 sets, daily range): BP systolic 109–145; BP diastolic 68–88; PULSE 47–61; TEMP 97–98.6
[2018-08-22 09:46] LABS: HEMATOCRIT 40.8 % (42.0-52.0); HEMOGLOBIN 14.3 g/dl (13.5-18.0); MEAN CELL VOLUME 97 fl (80.0-100.0); MEAN CORPUSCULAR HEMOGLOBIN 34 pg (27.0-31.0); MEAN CORPUSCULAR HGB CONC 35 g/dl (33.0-37.0); MEAN PLATELET VOLUME 9.6 fl (7.4-10.4); PLATELET COUNT 135 K/mm3 (130-400); RED BLOOD COUNT 4.23 M/mm3 (4.20-5.60); REDCELL DISTRIBUTION WIDTH-CV 13.1 % (11.5-14.5)
[2018-08-22 10:00] LABS: ALBUMIN 4.1 gm/dL (3.5-5.0); BILIRUBIN,TOTAL 0.7 mg/dL (0.0-1.0); CREATININE, serum 0.86 mg/dL (0.66-1.25); POTASSIUM 3.9 mmol/L (3.4-5.0); TOTAL PROTEIN 8.3 gm/dL (6.4-8.2)
[~2018-09-12] VITALS: Ht 180.3 cm; Wt 96.5 kg
[2018-09-12] VITALS (12 sets, daily range): BP systolic 123–146; BP diastolic 36–81; PULSE 47–59; TEMP 97–98.3
[~2018-09-12 09:30] MED LIST changes: +CEPHALEXIN500 M1 PO
[2018-09-12 09:54] LABS: HEMATOCRIT 41.9 % (42.0-52.0); HEMOGLOBIN 14.3 g/dl (13.5-18.0); MEAN CELL VOLUME 98 fl (80.0-100.0); MEAN CORPUSCULAR HEMOGLOBIN 34 pg (27.0-31.0); MEAN CORPUSCULAR HGB CONC 34 g/dl (33.0-37.0); MEAN PLATELET VOLUME 9.1 fl (7.4-10.4); PLATELET COUNT 137 K/mm3 (130-400); RED BLOOD COUNT 4.26 M/mm3 (4.20-5.60); REDCELL DISTRIBUTION WIDTH-CV 13.4 % (11.5-14.5)
[2018-09-12 10:05] LABS: BILIRUBIN,TOTAL 0.7 mg/dL (0.0-1.0); CALCIUM 8.8 mg/dL (8.4-10.2); CREATININE, serum 0.92 mg/dL (0.66-1.25); POTASSIUM 3.7 mmol/L (3.4-5.0); TOTAL PROTEIN 7.9 gm/dL (6.4-8.2)
== END 2018-09-18 | disposition home or self-care (01) ==
LOC: EUO
PROVIDERS: Family Medicine
DX: G70.00 Myasthenia gravis without (acute) exacerbation (principal)
CPT/HCPCS: J1200; J1569

== ENCOUNTER 2018-10-24 09:30 | Outpatient (RCR) | payer MEDICARE, BC ==
[2018-10-03] VITALS (10 sets, daily range): BP systolic 126–135; BP diastolic 52–64; PULSE 49–58; TEMP 97.4–97.6
[2018-10-03 10:42] LABS: HEMOGLOBIN 14.1 g/dl (13.5-18.0); MEAN CELL VOLUME 98 fl (80.0-100.0); MEAN CORPUSCULAR HEMOGLOBIN 34 pg (27.0-31.0); MEAN CORPUSCULAR HGB CONC 34 g/dl (33.0-37.0); MEAN PLATELET VOLUME 9.6 fl (7.4-10.4); PLATELET COUNT 138 K/mm3 (130-400); RED BLOOD COUNT 4.19 M/mm3 (4.20-5.60); REDCELL DISTRIBUTION WIDTH-CV 13.2 % (11.5-14.5)
[2018-10-03 11:03] LABS: ALBUMIN 3.9 gm/dL (3.5-5.0); BILIRUBIN,TOTAL 0.7 mg/dL (0.0-1.0); CALCIUM 8.8 mg/dL (8.4-10.2); CREATININE, serum 0.85 mg/dL (0.66-1.25); POTASSIUM 4.1 mmol/L (3.4-5.0); TOTAL PROTEIN 7.7 gm/dL (6.4-8.2)
[2018-10-24] VITALS (15 sets, daily range): BP systolic 115–147; BP diastolic 58–80; PULSE 50–70; TEMP 97.8–98
[~2018-10-24] VITALS: Ht 180.3 cm; Wt 98.8 kg
[2018-10-24 09:55] LABS: HEMATOCRIT 40.6 % (42.0-52.0); MEAN CELL VOLUME 98 fl (80.0-100.0); MEAN CORPUSCULAR HEMOGLOBIN 34 pg (27.0-31.0); MEAN CORPUSCULAR HGB CONC 35 g/dl (33.0-37.0); MEAN PLATELET VOLUME 9.5 fl (7.4-10.4); PLATELET COUNT 149 K/mm3 (130-400); RED BLOOD COUNT 4.15 M/mm3 (4.20-5.60)
[2018-10-24 10:18] LABS: BILIRUBIN,TOTAL 0.7 mg/dL (0.0-1.0); CALCIUM 8.9 mg/dL (8.4-10.2); CREATININE, serum 0.83 mg/dL (0.66-1.25); POTASSIUM 3.8 mmol/L (3.4-5.0); TOTAL PROTEIN 7.9 gm/dL (6.4-8.2)
== END 2018-11-14 07:15 | disposition home or self-care (01) ==
LOC: EUO 09:30
PROVIDERS: Family Medicine
DX: G70.00 Myasthenia gravis without (acute) exacerbation (principal)
CPT/HCPCS: J1200; J1569

== ENCOUNTER 2019-02-06 09:30 | Outpatient (RCR) | payer MEDICARE, BC ==
[2018-11-14] VITALS (13 sets, daily range): BP systolic 109–133; BP diastolic 53–62; PULSE 53–61; TEMP 98.3–98.9
[2018-11-14 10:11] LABS: HEMATOCRIT 40.3 % (42.0-52.0); HEMOGLOBIN 13.8 g/dl (13.5-18.0); MEAN CELL VOLUME 98 fl (80.0-100.0); MEAN CORPUSCULAR HEMOGLOBIN 34 pg (27.0-31.0); MEAN CORPUSCULAR HGB CONC 34 g/dl (33.0-37.0); MEAN PLATELET VOLUME 9.4 fl (7.4-10.4); PLATELET COUNT 127 K/mm3 (130-400); REDCELL DISTRIBUTION WIDTH-CV 13.3 % (11.5-14.5)
[2018-11-14 10:21] LABS: ALBUMIN 3.9 gm/dL (3.5-5.0); BILIRUBIN,TOTAL 0.8 mg/dL (0.0-1.0); CALCIUM 8.8 mg/dL (8.4-10.2); CREATININE, serum 0.79 mg/dL (0.66-1.25); TOTAL PROTEIN 7.6 gm/dL (6.4-8.2)
[2018-12-05] VITALS (12 sets, daily range): BP systolic 118–137; BP diastolic 64–76; PULSE 60–80; TEMP 97.3–98.2
[2018-12-05 10:29] LABS: HEMATOCRIT 40.7 % (42.0-52.0); HEMOGLOBIN 13.9 g/dl (13.5-18.0); MEAN CELL VOLUME 98 fl (80.0-100.0); MEAN CORPUSCULAR HEMOGLOBIN 34 pg (27.0-31.0); MEAN CORPUSCULAR HGB CONC 34 g/dl (33.0-37.0); MEAN PLATELET VOLUME 9.6 fl (7.4-10.4); PLATELET COUNT 139 K/mm3 (130-400); RED BLOOD COUNT 4.15 M/mm3 (4.20-5.60); REDCELL DISTRIBUTION WIDTH-CV 13.2 % (11.5-14.5)
[2018-12-05 10:41] LABS: ALBUMIN 3.9 gm/dL (3.5-5.0); BILIRUBIN,TOTAL 0.7 mg/dL (0.0-1.0); CALCIUM 8.9 mg/dL (8.4-10.2); CREATININE, serum 0.93 mg/dL (0.66-1.25); POTASSIUM 3.5 mmol/L (3.4-5.0); TOTAL PROTEIN 7.7 gm/dL (6.4-8.2)
[2018-12-26] VITALS (14 sets, daily range): BP systolic 116–137; BP diastolic 59–78; PULSE 52–57; TEMP 97–98.2
[2018-12-26 10:10] LABS: HEMATOCRIT 41.3 % (42.0-52.0); HEMOGLOBIN 14.3 g/dl (13.5-18.0); MEAN CELL VOLUME 98 fl (80.0-100.0); MEAN CORPUSCULAR HEMOGLOBIN 34 pg (27.0-31.0); MEAN CORPUSCULAR HGB CONC 35 g/dl (33.0-37.0); MEAN PLATELET VOLUME 9.4 fl (7.4-10.4); PLATELET COUNT 136 K/mm3 (130-400); RED BLOOD COUNT 4.22 M/mm3 (4.20-5.60); REDCELL DISTRIBUTION WIDTH-CV 13.1 % (11.5-14.5)
[2018-12-26 10:22] LABS: ALBUMIN 4.1 gm/dL (3.5-5.0); BILIRUBIN,TOTAL 0.6 mg/dL (0.0-1.0); CALCIUM 8.7 mg/dL (8.4-10.2); CREATININE, serum 0.82 mg/dL (0.66-1.25); POTASSIUM 3.9 mmol/L (3.4-5.0); TOTAL PROTEIN 8.1 gm/dL (6.4-8.2)
[2019-01-16] VITALS (7 sets, daily range): BP systolic 126–144; BP diastolic 67–80; PULSE 50–55; TEMP 97.8–97.9
[2019-01-16 10:30] LABS: HEMATOCRIT 40.9 % (42.0-52.0); HEMOGLOBIN 14.1 g/dl (13.5-18.0); MEAN CELL VOLUME 98 fl (80.0-100.0); MEAN CORPUSCULAR HEMOGLOBIN 34 pg (27.0-31.0); MEAN CORPUSCULAR HGB CONC 35 g/dl (33.0-37.0); MEAN PLATELET VOLUME 9.5 fl (7.4-10.4); PLATELET COUNT 132 K/mm3 (130-400); RED BLOOD COUNT 4.19 M/mm3 (4.20-5.60)
[2019-01-16 10:37] LABS: BILIRUBIN,TOTAL 0.7 mg/dL (0.0-1.0); CALCIUM 8.8 mg/dL (8.4-10.2); CREATININE, serum 0.82 mg/dL (0.66-1.25); POTASSIUM 3.9 mmol/L (3.4-5.0); TOTAL PROTEIN 7.9 gm/dL (6.4-8.2)
[2019-02-06] VITALS (13 sets, daily range): BP systolic 113–144; BP diastolic 54–69; PULSE 48–56; TEMP 98.1–98.9
[~2019-02-06] VITALS: Ht 180.3 cm; Wt 101.0 kg
[2019-02-06 10:09] LABS: HEMATOCRIT 39.5 % (42.0-52.0); HEMOGLOBIN 13.8 g/dl (13.5-18.0); MEAN CELL VOLUME 97 fl (80.0-100.0); MEAN CORPUSCULAR HEMOGLOBIN 34 pg (27.0-31.0); MEAN CORPUSCULAR HGB CONC 35 g/dl (33.0-37.0); MEAN PLATELET VOLUME 9.6 fl (7.4-10.4); PLATELET COUNT 140 K/mm3 (130-400); RED BLOOD COUNT 4.08 M/mm3 (4.20-5.60)
[2019-02-06 10:14] LABS: ALBUMIN 3.8 gm/dL (3.5-5.0); BILIRUBIN,TOTAL 0.6 mg/dL (0.0-1.0); CREATININE, serum 0.86 mg/dL (0.66-1.25); TOTAL PROTEIN 7.6 gm/dL (6.4-8.2)
== END 2019-02-12 | disposition home or self-care (01) ==
LOC: EUO
PROVIDERS: Family Medicine
DX: G70.00 Myasthenia gravis without (acute) exacerbation (principal)
CPT/HCPCS: J1200; J1569

== ENCOUNTER 2019-05-06 10:56 | Outpatient (CLI) | payer MEDICARE, BC ==
[~2019-05-06] VITALS: Ht 180.3 cm; Wt 101.0 kg
[2019-05-06 12:25] VITALS: BP 139/73; PULSE 57; TEMP 99
== END 2019-05-06 15:00 | disposition home or self-care (01) ==
LOC: EUO 10:56
DX: M81.0 Age-related osteoporosis without current pathological fracture (principal)
CPT/HCPCS: J3489

== ENCOUNTER 2019-05-22 10:00 | Outpatient (RCR) | payer MEDICARE, BC ==
[2019-02-27] VITALS (14 sets, daily range): BP systolic 116–137; BP diastolic 65–91; PULSE 50–59; TEMP 98–98.6
[2019-02-27 09:57] LABS: HEMATOCRIT 40.1 % (42.0-52.0); HEMOGLOBIN 13.9 g/dl (13.5-18.0); MEAN CELL VOLUME 97 fl (80.0-100.0); MEAN CORPUSCULAR HEMOGLOBIN 34 pg (27.0-31.0); MEAN CORPUSCULAR HGB CONC 35 g/dl (33.0-37.0); MEAN PLATELET VOLUME 9.5 fl (7.4-10.4); PLATELET COUNT 150 K/mm3 (130-400); RED BLOOD COUNT 4.12 M/mm3 (4.20-5.60); REDCELL DISTRIBUTION WIDTH-CV 13.2 % (11.5-14.5)
[2019-02-27 10:03] LABS: BILIRUBIN,TOTAL 0.8 mg/dL (0.0-1.0); CALCIUM 9.2 mg/dL (8.4-10.2); CREATININE, serum 0.92 (0.66-1.25); POTASSIUM 3.8 mmol/L (3.4-5.0)
[2019-03-20] VITALS (13 sets, daily range): BP systolic 101–142; BP diastolic 61–75; PULSE 52–68; TEMP 97.8–98.7
[2019-03-20 10:16] LABS: HEMATOCRIT 41.7 % (42.0-52.0); MEAN CELL VOLUME 98 fl (80.0-100.0); MEAN CORPUSCULAR HEMOGLOBIN 33 pg (27.0-31.0); MEAN CORPUSCULAR HGB CONC 34 g/dl (33.0-37.0); MEAN PLATELET VOLUME 9.5 fl (7.4-10.4); PLATELET COUNT 142 K/mm3 (130-400); RED BLOOD COUNT 4.24 M/mm3 (4.20-5.60); REDCELL DISTRIBUTION WIDTH-CV 13.1 % (11.5-14.5)
[2019-03-20 10:32] LABS: ALBUMIN 3.9 gm/dL (3.5-5.0); BILIRUBIN,TOTAL 0.7 mg/dL (0.0-1.0); CREATININE, serum 0.97 (0.66-1.25); POTASSIUM 4.3 mmol/L (3.4-5.0)
[2019-04-10] VITALS (12 sets, daily range): BP systolic 110–149; BP diastolic 56–77; PULSE 52–73; TEMP 97.6–98.7
[2019-04-10 10:04] LABS: HEMATOCRIT 40.4 % (42.0-52.0); HEMOGLOBIN 14.1 g/dl (13.5-18.0); MEAN CELL VOLUME 97 fl (80.0-100.0); MEAN CORPUSCULAR HEMOGLOBIN 34 pg (27.0-31.0); MEAN CORPUSCULAR HGB CONC 35 g/dl (33.0-37.0); MEAN PLATELET VOLUME 9.7 fl (7.4-10.4); PLATELET COUNT 152 K/mm3 (130-400); RED BLOOD COUNT 4.18 M/mm3 (4.20-5.60); REDCELL DISTRIBUTION WIDTH-CV 13.2 % (11.5-14.5)
[2019-04-10 10:13] LABS: ALBUMIN 3.9 gm/dL (3.5-5.0); BILIRUBIN,TOTAL 0.8 mg/dL (0.0-1.0); CALCIUM 8.9 mg/dL (8.4-10.2); CREATININE, serum 0.85 (0.66-1.25); POTASSIUM 3.8 mmol/L (3.4-5.0); TOTAL PROTEIN 7.9 gm/dL (6.4-8.2)
--- NOTE | 2019-04-10 15:15 | NUR ---
infusion completed, iv d'cd intact, no c/o or changes, pt discharged amb.
[2019-05-01] VITALS (16 sets, daily range): BP systolic 106–132; BP diastolic 59–68; PULSE 50–90; TEMP 97.7–98.6
[2019-05-01 09:58] LABS: HEMATOCRIT 42.8 % (42.0-52.0); HEMOGLOBIN 14.8 g/dl (13.5-18.0); MEAN CELL VOLUME 98 fl (80.0-100.0); MEAN CORPUSCULAR HEMOGLOBIN 34 pg (27.0-31.0); MEAN CORPUSCULAR HGB CONC 35 g/dl (33.0-37.0); MEAN PLATELET VOLUME 9.8 fl (7.4-10.4); PLATELET COUNT 152 K/mm3 (130-400); RED BLOOD COUNT 4.39 M/mm3 (4.20-5.60); REDCELL DISTRIBUTION WIDTH-CV 13.2 % (11.5-14.5)
[2019-05-01 10:10] LABS: ALBUMIN 4.2 gm/dL (3.5-5.0); BILIRUBIN,TOTAL 0.6 mg/dL (0.0-1.0); CALCIUM 9.1 mg/dL (8.4-10.2); CREATININE, serum 0.82 (0.66-1.25); POTASSIUM 4.1 mmol/L (3.4-5.0); TOTAL PROTEIN 8.4 gm/dL (6.4-8.2)
[~2019-05-22] VITALS: Ht 180.3 cm; Wt 101.9 kg
[2019-05-22] VITALS (12 sets, daily range): BP systolic 102–137; BP diastolic 51–74; PULSE 47–65; TEMP 98–99
[2019-05-22 10:26] LABS: HEMATOCRIT 40.3 % (42.0-52.0); HEMOGLOBIN 13.8 g/dl (13.5-18.0); MEAN CELL VOLUME 97 fl (80.0-100.0); MEAN CORPUSCULAR HEMOGLOBIN 33 pg (27.0-31.0); MEAN CORPUSCULAR HGB CONC 34 g/dl (33.0-37.0); MEAN PLATELET VOLUME 9.3 fl (7.4-10.4); PLATELET COUNT 141 K/mm3 (130-400); RED BLOOD COUNT 4.15 M/mm3 (4.20-5.60); REDCELL DISTRIBUTION WIDTH-CV 13.2 % (11.5-14.5)
[2019-05-22 10:37] LABS: ALBUMIN 3.8 gm/dL (3.5-5.0); BILIRUBIN,TOTAL 0.5 mg/dL (0.0-1.0); CALCIUM 8.8 mg/dL (8.4-10.2); CREATININE, serum 0.82 (0.66-1.25); POTASSIUM 3.7 mmol/L (3.4-5.0); TOTAL PROTEIN 7.9 gm/dL (6.4-8.2)
--- NOTE | 2019-05-22 11:45 | NUR ---
UNABLE TO COLLECT VITAL EVERY 15 MINUTES. PT GOT UP TO USE THE RESTROOM AND DYNAMAP DID NOT CONTINUE TO TAKE VITALS CORRECTLY AFTER HE RETURNED. PT IS RECONNECTED CORRECTLY AND THIS RN WILL CONTINUE TO MONITOR.
--- NOTE | 2019-05-22 19:35 | NUR ---
LABS WERE FAXED TO DR AIDA ANTONY AT THIS TIME.
== END 2019-05-28 ==
LOC: EUO
PROVIDERS: Family Medicine
DX: G70.00 Myasthenia gravis without (acute) exacerbation (principal)
CPT/HCPCS: J1200; J1569

== ENCOUNTER 2020-05-11 14:48 | Outpatient (CLI) | payer MEDICARE, BC ==
[~2020-05-11] VITALS: Ht 180.3 cm; Wt 107.9 kg
[2020-05-11] MEDS ORDERED: GAMUNEX-C20 GM/200 IJ (16:15)
== END 2020-05-11 16:19 | disposition home or self-care (01) ==
LOC: EUO 14:48
DX: M81.0 Age-related osteoporosis without current pathological fracture (principal)
CPT/HCPCS: J3489

== ENCOUNTER 2021-05-19 14:55 | Outpatient (CLI) | payer MEDICARE, BC ==
[~2021-05-19] VITALS: Ht 180.3 cm; Wt 103.5 kg
[~2021-05-19 14:55] MED LIST changes: +GAMUNEX-C20 GM/200 IJ
[2021-05-19 15:10] VITALS: BP 145/74; PULSE 63; TEMP 98.2
== END 2021-05-19 15:49 | disposition home or self-care (01) ==
LOC: EUO 14:55
DX: M81.0 Age-related osteoporosis without current pathological fracture (principal)
CPT/HCPCS: J3489

== ENCOUNTER 2021-08-06 08:21 | Day surgery (SDC) | payer MEDICARE, BC ==
[~2021-08-06] VITALS: Ht 180.3 cm; Wt 98.0 kg
[2021-08-06 09:19] VITALS: BP 147/79; PULSE 61; TEMP 97.2
[2021-08-06] MEDS ORDERED: PREDNISONE1 MG PO (09:19)
[2021-08-06 10:20] VITALS: BP 127/66; PULSE 57; TEMP 97
[2021-08-06 10:35] VITALS: BP 133/68; PULSE 59
[2021-08-06 10:50] VITALS: BP 133/81; PULSE 55; TEMP 96.3
--- NOTE | 2021-08-06 11:15 | NUR ---
1020 - Pt returns from endo procedure via cart and RN assist. Pt ambulates from cart to recliner with RN assist. Monitors on and alarms set. Call light within reach. Pt alert and oriented. Pt requests apple juice and muffin. Pt denies any pain or nausea. 1035 - Pt taking food and drink well. No complications noted. 1050 - Discharge instructions given to pt. All questions answered to patients satisfaction. Handed to pt are a thank you card and discharge information. 1115- Pt transferred out of the hospital via wheelchair and RN assist, to private vehicle driven by . .
[2021-08-06 13:16] VITALS: BP 117/68; PULSE 51
== END 2021-08-06 11:15 | disposition home or self-care (01) ==
LOC: SDCO 08:21
DX: D12.2 Benign neoplasm of ascending colon (principal); D12.5 Benign neoplasm of sigmoid colon; K57.30 Diverticulosis of large intestine without perforation or abscess without bleeding; R19.5 Other fecal abnormalities; K42.9 Umbilical hernia without obstruction or gangrene; K21.9 Gastro-esophageal reflux disease without esophagitis; G70.00 Myasthenia gravis without (acute) exacerbation; F41.9 Anxiety disorder, unspecified; Z20.822 Contact with and (suspected) exposure to COVID-19; Z79.899 Other long term (current) drug therapy
CPT/HCPCS: J2704; J7030

== ENCOUNTER 2022-06-08 13:48 | Outpatient (CLI) | payer MEDICARE, BC ==
[~2022-06-08] VITALS: Ht 180.3 cm; Wt 99.0 kg
[~2022-06-08 13:48] MED LIST changes: +PREDNISONE1 MG PO
[2022-06-08 14:11] VITALS: BP 138/70; PULSE 63; TEMP 98.8
== END 2022-06-08 15:00 | disposition home or self-care (01) ==
LOC: EUO 13:48
DX: M81.0 Age-related osteoporosis without current pathological fracture (principal)
CPT/HCPCS: J3489

== ENCOUNTER → 2024-03-06 | Outpatient (REF) | payer MEDICARE, BC ==
[~2024-03-06] MED LIST changes: +CALTRATE 600 +1 TAB PO; +PURE & GENTLE 115 ML OP
[2024-03-06 12:48] LABS: BAND 1 % (0-10); LYMPHOCYTE 10 % (20.0-51.0); NEUTROPHILS 84 % (42.0-75.2); PLATELET ESTIMATE NORMAL (NORMAL)
== END ==
LOC: ZCOL.LAB 11:39
PROVIDERS: Family Medicine
DX: D69.6 Thrombocytopenia, unspecified (principal)

== ENCOUNTER 2024-08-30 10:00 | Day surgery (SDC) | payer MEDICARE, BC ==
[~2024-08-30] VITALS: Ht 180.3 cm; Wt 107.5 kg
[~2024-08-30 10:00] MED LIST changes: -CALTRATE 600 +1 TAB PO; +CALTRATE-600 W600 MG PO; -GAMUNEX-C20 GM/200 IJ; +GAMUNEX-C20 GM/200 IV; +LR 1,000 ML IV SCH; -MULTI VITAMINS1 TAB PO; +Ondansetron 4 MG/2 ML VIAL IV PRN; +PRILOSEC 20MG20 MG PO; -PRILOTC PO; +QUALITY CHOICE1 T22 PO
[2024-08-30 12:03] VITALS: BP 163/77; PULSE 60; TEMP 97.2
[2024-08-30 13:55] VITALS: BP 141/93; PULSE 54; TEMP 97.2
--- NOTE | 2024-08-30 13:55 | NUR ---
1355: Pt arrives to [facility] via cart. Ambulates to chair, at bedside. VSS on room air, denies abd pain/nausea. Offered PO snack/drink. 1430: Discharge instructions reviewed with understanding verbalized, questions invited and answered. Tolerated PO without incident. 1436: Dr Serrano in to talk to pt/spouse.
[2024-08-30 14:10] VITALS: BP 146/76; PULSE 53
[2024-08-30] MEDS ORDERED: LIQUIFILM TEARS15 ML OU (15:45)
== END 2024-08-30 14:40 | disposition home or self-care (01) ==
LOC: SDCO 10:00
DX: Z12.11 Encounter for screening for malignant neoplasm of colon (principal); D12.0 Benign neoplasm of cecum; K57.30 Diverticulosis of large intestine without perforation or abscess without bleeding
CPT/HCPCS: J2704; J7120